=== PATIENT | female | born 1940 | race Caucasian/White ===

== ENCOUNTER 2017-02-23 11:46 | Emergency (ER) | payer OTHER ==
[~2017-02-23] VITALS: Ht 165.1 cm; Wt 80.3 kg
[~2017-02-23 11:46] MED LIST: AMARYL4 MG PO; GLUCOPHAGE500 MG PO; LISINOPRIL10 MG PO; NORCO 5/3251 TABLET PO; VISINE TEARS DR30 ML BOTH EYES; ZYLOPRIM300 MG PO
[2017-02-23] MEDS ORDERED: TYLENOL WITH C1 EACH PO (13:55)
[2017-02-23 14:12] VITALS: BP 127/74
== END 2017-02-23 14:15 | disposition home or self-care (01) ==
LOC: EME 11:46 → RME 11:46
DX: S50.02XA Contusion of left elbow, initial encounter (principal); S80.212A Abrasion, left knee, initial encounter; S20.212A Contusion of left front wall of thorax, initial encounter; W01.10XA Fall on same level from slipping, tripping and stumbling with subsequent striking against unspecified object, initial encounter; Y93.H2 Activity, gardening and landscaping; I10 Essential (primary) hypertension; E11.9 Type 2 diabetes mellitus without complications; Z79.84 Long term (current) use of oral hypoglycemic drugs
CPT/HCPCS: 71101; 73080; 73564; 99281; 99284

== ENCOUNTER 2017-07-27 01:21 | Emergency (ER) | payer OTHER ==
[~2017-07-27] VITALS: Ht 165.1 cm; Wt 83.8 kg
[~2017-07-27 01:21] MED LIST changes: +TYLENOL WITH C1 EACH PO
[2017-07-27 02:00] LABS: HEMATOCRIT 31.6 % (36.0-46.0); MCH 29.8 PG (29.0-34.0); MCHC 36.1 G/DL (30.0-36.0); MCV 82.7 FL (83-99); MEAN PLAT.VOLUME 11.4 uM^3 (9.5-12.4); PLATELET COUNT 193 K/uL (156-360); RBC DIS.WIDTH-CV 15.9 % (11.8-14.6); RBC DIS.WIDTH-SD 47.8 % (39-53); RED BLOOD COUNT 3.82 M/uL (3.80-5.20); WHITE BLOOD COUNT 6.8 K/uL (4.1-10.2)
[2017-07-27 02:08] LABS: CHLORIDE 102 mEq/L (99-109); POTASSIUM 3.5 mEq/L (3.7-5.4); SODIUM 131 mEq/L (136-147)
[2017-07-27 02:10] LABS: GLUCOSE 110 mg/dL (70-99)
[2017-07-27 02:12] LABS: ANION GAP 9 MEQ/L (2-14); TOTAL BILIRUBIN 0.8 mg/dL (0.0-1.0)
[2017-07-27 02:14] LABS: ALKALINE PHOSPHATASE 143 IU/L (3-129); GFR ESTIMATE (CALCULATED) > 59 mL/min/
[2017-07-27 02:15] LABS: UREA NITROGEN (BUN) 11 mg/dL (9-23)
[2017-07-27 03:03] LABS: ADD MIUA? YES; BILIRUBIN NEGATIVE; BLOOD MODERATE; COLOR YELLOW ((YELLOW)); GLUCOSE (STRIP) NEGATIVE; KETONES NEGATIVE; LEUKOCYTES LARGE; NITRITE POSITIVE; PROTEIN (STRIP) 30; SPECIFIC GRAVITY 1.015 (1.000-1.030); UROBILINOGEN 0.2 MG/DL (0.2-1.0)
[2017-07-27 03:22] LABS: WHITE BLOOD CELLS TNTC /HPF (0-5)
[2017-07-27 03:23] LABS: BACTERIA 2+ /HPF; EPITHELIAL CELLS 1+ /HPF; MUCUS NONE SEEN /LPF; RED BLOOD CELLS 20-30 /HPF (0-5); UCUL ADDED? YES
[2017-07-27 04:15] LABS: CHLORIDE 100 mEq/L (99-109); POTASSIUM 3.6 mEq/L (3.7-5.4); SODIUM 129 mEq/L (136-147)
[2017-07-27 04:16] LABS: GLUCOSE 153 mg/dL (70-99)
[2017-07-27 04:18] LABS: ANION GAP 10 MEQ/L (2-14)
[2017-07-27 04:20] LABS: GFR ESTIMATE (CALCULATED) > 59 mL/min/
[2017-07-27 04:21] LABS: UREA NITROGEN (BUN) 11 mg/dL (9-23)
[2017-07-27] MEDS ORDERED: KEFLEX500 MG PO (06:10)
[2017-07-27 07:06] VITALS: BP 111/58
== END 2017-07-27 07:07 | disposition home or self-care (01) ==
LOC: EME 01:21
PROVIDERS: Emergency Medicine
DX: N39.0 Urinary tract infection, site not specified (principal); B96.20 Unspecified Escherichia coli [E. coli] as the cause of diseases classified elsewhere; R10.32 Left lower quadrant pain; I10 Essential (primary) hypertension; F32.9 Major depressive disorder, single episode, unspecified; M10.9 Gout, unspecified; Z85.820 Personal history of malignant melanoma of skin
CPT/HCPCS: 71010; 74176; 80048 91; 80053; 81003; 83605; 85027; 87040; 87077; 87502; 99281; 99284; J0696; J7030

== ENCOUNTER 2017-08-06 17:00 | Inpatient (IN) | payer OTHER ==
[~2017-08-06] VITALS: Ht 165.1 cm; Wt 77.6 kg
[~2017-08-06 17:00] MED LIST changes: +KEFLEX500 MG PO; -LISINOPRIL10 MG PO; +LISINOPRIL5 MG PO
[2017-08-06 18:10] LABS: HEMATOCRIT 32.3 % (36.0-46.0); HEMOGLOBIN 10.5 G/DL (11.9-15.5); MCH 29.3 PG (29.0-34.0); MCHC 32.5 G/DL (30.0-36.0); MCV 90.2 FL (83-99); PLATELET COUNT 286 K/uL (156-360); RBC DIS.WIDTH-CV 19.2 % (11.8-14.6); RBC DIS.WIDTH-SD 61.1 % (39-53); RED BLOOD COUNT 3.58 M/uL (3.80-5.20); WHITE BLOOD COUNT 10.2 K/uL (4.1-10.2)
[2017-08-06 18:17] LABS: ALBUMIN 3.1 g/dL (3.2-4.8); CHLORIDE 102 mEq/L (99-109); POTASSIUM 4.8 mEq/L (3.7-5.4); SODIUM 132 mEq/L (136-147)
[2017-08-06 18:20] LABS: GLUCOSE 152 mg/dL (70-99); TOTAL PROTEIN 7.1 g/dL (6.4-8.3)
[2017-08-06 18:22] LABS: TOTAL BILIRUBIN 1.1 mg/dL (0.0-1.0)
[2017-08-06 18:23] LABS: ALKALINE PHOSPHATASE 70 IU/L (3-129); CREATININE 1.2 mg/dL (0.6-1.3); GFR ESTIMATE (CALCULATED) 46 mL/min/
[2017-08-06 18:24] LABS: UREA NITROGEN (BUN) 15 mg/dL (9-23)
[2017-08-06 18:25] LABS: AST (GOT) 16 IU/L (2-34)
[2017-08-06 18:26] LABS: ALT (GPT) 17 IU/L (3-49)
[2017-08-06 21:32] LABS: APPEARANCE SL.HAZY ((CLEAR)); BILIRUBIN NEGATIVE; BLOOD NEGATIVE; COLOR YELLOW ((YELLOW)); GLUCOSE (STRIP) NEGATIVE; KETONES NEGATIVE; LEUKOCYTES SMALL; NITRITE NEGATIVE; PROTEIN (STRIP) NEGATIVE; SPECIFIC GRAVITY 1.009 (1.000-1.030); UROBILINOGEN 0.2 MG/DL (0.2-1.0)
[2017-08-06 21:43] LABS: BACTERIA RARE /HPF; EPITHELIAL CELLS 1+ /HPF; HYALINE CASTS 15-20 /LPF; MUCUS TRACE /LPF; RED BLOOD CELLS 0-5 /HPF (0-5); UCUL ADDED? NO; WHITE BLOOD CELLS 0-5 /HPF (0-5)
[2017-08-06 23:59] VITALS: BP 88/42
[2017-08-07] VITALS (9 sets, daily range): BP systolic 92–139; BP diastolic 51–61
[2017-08-07 02:05] LABS: INTER. NORMALIZED RATIO 1.2
[2017-08-07 07:54] LABS: BASOPHIL (%) 0.6 % (0-1); EOSINOPHIL (%) 10.6 % (0-5); EOSINOPHIL COUNT 0.6 K/uL (0-0.3); HEMATOCRIT 29.1 % (36.0-46.0); HEMOGLOBIN 9.3 G/DL (11.9-15.5); IMMATURE GRANULOCYTE (%) 0.4 % (0.0-0.7); LYMPHOCYTE (%) 19.2 % (15-42); MCH 29.2 PG (29.0-34.0); MCV 91.5 FL (83-99); MONOCYTE (%) 8.6 % (3-12); MONOCYTE COUNT 0.5 K/uL (0-0.8); NEUTROPHIL (%) 60.6 % (45-76); NEUTROPHIL COUNT 3.2 K/uL (1.8-6.4); PLATELET COUNT 237 K/uL (156-360); RBC DIS.WIDTH-CV 19.5 % (11.8-14.6); RBC DIS.WIDTH-SD 63.8 % (39-53); RED BLOOD COUNT 3.18 M/uL (3.80-5.20); WHITE BLOOD COUNT 5.3 K/uL (4.1-10.2)
[2017-08-07 08:16] LABS: CHLORIDE 108 MEQ/L (99-109); CREATININE 0.8 MG/DL (0.6-1.3); GFR ESTIMATE (CALCULATED) > 59 mL/min/; POTASSIUM 4.2 MEQ/L (3.7-5.4); SODIUM 138 MEQ/L (136-147); UREA NITROGEN (BUN) 13 mg/dL (9-23)
[2017-08-07 08:20] LABS: GLUCOSE 86 mg/dL (70-99)
[2017-08-07] MEDS ORDERED: OXYCODONE HCL5 MG PO (11:28)
[2017-08-07 12:59] LABS: C DIFF TOXIN NEGATIVE (NEGATIVE)
[2017-08-07 13:51] LABS: INTER. NORMALIZED RATIO 1.2
[2017-08-07 13:54] LABS: PTT 60.1 SEC (25-37)
[2017-08-07 19:52] LABS: INTER. NORMALIZED RATIO 1.2
[2017-08-07 19:54] LABS: PTT 77.1 SEC (25-37)
[2017-08-08 04:59] VITALS: BP 119/58
[2017-08-08 05:57] LABS: ALBUMIN 2.7 G/DL (3.2-4.8); ALKALINE PHOSPHATASE 55 IU/L (3-129); ALT (GPT) 9 IU/L (3-49); AST (GOT) 9 IU/L (2-34); CHLORIDE 108 MEQ/L (99-109); CREATININE 0.6 MG/DL (0.6-1.3); GFR ESTIMATE (CALCULATED) > 59 mL/min/; GLUCOSE 100 mg/dL (70-99); INTER. NORMALIZED RATIO 1.3; POTASSIUM 3.9 MEQ/L (3.7-5.4); SODIUM 139 MEQ/L (136-147); TOTAL BILIRUBIN 0.8 MG/DL (0.0-1.0); TOTAL PROTEIN 5.8 G/DL (6.4-8.3); UREA NITROGEN (BUN) 7 mg/dL (9-23)
[2017-08-08 07:12] VITALS: BP 113/53
[2017-08-08 08:02] LABS: PTT 73.2 SEC (25-37)
[2017-08-08 11:26] VITALS: BP 110/53
[2017-08-08] MEDS ORDERED: TYLENOL WITH C1 EACH PO (13:51)
[2017-08-08 14:01] VITALS: BP 100/50
[2017-08-08 19:39] VITALS: BP 118/56
[2017-08-08 23:23] VITALS: BP 109/57
[2017-08-09 03:22] VITALS: BP 118/57
[2017-08-09 05:56] LABS: HEMATOCRIT 29.4 % (36.0-46.0); HEMOGLOBIN 9.3 G/DL (11.9-15.5); MCH 28.8 PG (29.0-34.0); MCHC 31.6 G/DL (30.0-36.0); PLATELET COUNT 269 K/uL (156-360); RBC DIS.WIDTH-CV 19.9 % (11.8-14.6); RBC DIS.WIDTH-SD 66.6 % (39-53); RED BLOOD COUNT 3.23 M/uL (3.80-5.20); WHITE BLOOD COUNT 3.9 K/uL (4.1-10.2)
[2017-08-09 06:01] LABS: INTER. NORMALIZED RATIO 1.4
[2017-08-09 06:27] LABS: CHLORIDE 108 MEQ/L (99-109); CREATININE 0.6 MG/DL (0.6-1.3); GFR ESTIMATE (CALCULATED) > 59 mL/min/; GLUCOSE 116 mg/dL (70-99); POTASSIUM 3.9 MEQ/L (3.7-5.4); SODIUM 140 MEQ/L (136-147); UREA NITROGEN (BUN) 6 mg/dL (9-23)
[2017-08-09 06:30] LABS: BASOPHIL (%) 1.3 % (0-1); BASOPHIL COUNT 0.1 K/uL (0-0.1); EOSINOPHIL (%) 11.2 % (0-5); EOSINOPHIL COUNT 0.4 K/uL (0-0.3); IMMATURE GRANULOCYTE (%) 0.5 % (0.0-0.7); LYMPHOCYTE (%) 34.8 % (15-42); LYMPHOCYTE COUNT 1.4 K/uL (1.0-2.8); MONOCYTE (%) 11.2 % (3-12); MONOCYTE COUNT 0.4 K/uL (0-0.8); NEUTROPHIL COUNT 1.6 K/uL (1.8-6.4)
[2017-08-09 08:19] VITALS: BP 120/71
[2017-08-09 11:29] LABS: TROP-I INTERPRETATION NEGATIVE; TROPONIN-I < 0.01 ng/mL (0.0-0.30)
[2017-08-09 12:00] VITALS: BP 127/69
[2017-08-09 14:55] VITALS: BP 131/61
[2017-08-09 19:06] VITALS: BP 125/60
[2017-08-09 22:08] VITALS: BP 120/56
[2017-08-10 03:51] VITALS: BP 119/59
[2017-08-10 06:20] LABS: INTER. NORMALIZED RATIO 1.6
[2017-08-10 06:30] LABS: HEMATOCRIT 30.8 % (36.0-46.0); HEMOGLOBIN 9.6 G/DL (11.9-15.5); MCH 28.9 PG (29.0-34.0); MCHC 31.2 G/DL (30.0-36.0); MCV 92.8 FL (83-99); PLATELET COUNT 265 K/uL (156-360); RBC DIS.WIDTH-CV 20.2 % (11.8-14.6); RBC DIS.WIDTH-SD 67.8 % (39-53); RED BLOOD COUNT 3.32 M/uL (3.80-5.20); WHITE BLOOD COUNT 4.7 K/uL (4.1-10.2)
[2017-08-10 06:39] LABS: CHLORIDE 105 MEQ/L (99-109); CREATININE 0.6 MG/DL (0.6-1.3); GFR ESTIMATE (CALCULATED) > 59 mL/min/; GLUCOSE 109 mg/dL (70-99); POTASSIUM 3.9 MEQ/L (3.7-5.4); SODIUM 138 MEQ/L (136-147); UREA NITROGEN (BUN) 7 mg/dL (9-23)
[2017-08-10 07:17] LABS: ABS NEUTROPHIL COUNT 1.3; ANISOCYTOSIS 2+; EOSINOPHIL ABS CT 0.5; MACROCYTES 1+; PLAT.SUFFICIENCY ADEQUATE
[2017-08-10 07:58] VITALS: BP 126/30; BP 126/60
[2017-08-10] MEDS ORDERED: XARELTO15 MG PO (15:53)
[2017-08-10] MEDS ORDERED: XARELTO20 MG PO (15:53)
[2017-08-10 16:42] VITALS: BP 119/79
[2017-08-10 19:55] VITALS: BP 127/60
[2017-08-10 23:23] VITALS: BP 133/63
[2017-08-11 03:25] VITALS: BP 125/58
[2017-08-11 05:46] LABS: HEMATOCRIT 30.9 % (36.0-46.0); HEMOGLOBIN 9.8 G/DL (11.9-15.5); MCH 29.7 PG (29.0-34.0); MCHC 31.7 G/DL (30.0-36.0); MCV 93.6 FL (83-99); PLATELET COUNT 263 K/uL (156-360); RBC DIS.WIDTH-CV 20.3 % (11.8-14.6); RBC DIS.WIDTH-SD 68.7 % (39-53); WHITE BLOOD COUNT 4.8 K/uL (4.1-10.2)
[2017-08-11 05:56] LABS: INTER. NORMALIZED RATIO 1.7
[2017-08-11 08:36] VITALS: BP 129/60
[2017-08-11] MEDS ORDERED: METFORMIN HCL500 MG PO (12:57)
== END 2017-08-11 15:07 | disposition home or self-care (01) | DRG 872 ==
LOC: EME 17:00 → 4EAST 21:47 → EDOF 21:47 → ENRESERV 21:49 → 5EAST 22:40 → ENRESERV 08-07 09:28 → 4EAST 08-07 10:35 → ENPENDDIS 08-11 → 4EAST 08-11 15:07
PROVIDERS: Hospitalist; Internal Medicine; Physician Assistant Medical; Student in an Organized Health Care Education/Training Program
DX: A41.9 Sepsis, unspecified organism (principal); A09 Infectious gastroenteritis and colitis, unspecified; I82.441 Acute embolism and thrombosis of right tibial vein; N39.0 Urinary tract infection, site not specified; E11.9 Type 2 diabetes mellitus without complications; J98.11 Atelectasis; I95.89 Other hypotension; I15.8 Other secondary hypertension; K21.9 Gastro-esophageal reflux disease without esophagitis; F32.9 Major depressive disorder, single episode, unspecified; M19.90 Unspecified osteoarthritis, unspecified site; E87.1 Hypo-osmolality and hyponatremia; K44.9 Diaphragmatic hernia without obstruction or gangrene; K57.90 Diverticulosis of intestine, part unspecified, without perforation or abscess without bleeding; E87.2 Acidosis; E78.5 Hyperlipidemia, unspecified; I09.9 Rheumatic heart disease, unspecified; M10.9 Gout, unspecified; H04.123 Dry eye syndrome of bilateral lacrimal glands; Z87.440 Personal history of urinary (tract) infections; Z68.30 Body mass index [BMI] 30.0-30.9, adult; Z90.49 Acquired absence of other specified parts of digestive tract; Z85.820 Personal history of malignant melanoma of skin; Z79.899 Other long term (current) drug therapy; E86.1 Hypovolemia
CPT/HCPCS: 71020; 71275; 74174; 74176; 80048; 80053; 80400; 81003; 82024 90; 82533 91; 82948; 83605; 84484; 85025; 85027; 85610; 85730; 87040; 87493; 87502; 93306; 93970; 99281; 99285; J0692; J0696; J0834; J1644; J1650; J1815; J3370; J7030; J7120